=== PATIENT | female | born 1965 | race Caucasian/White ===

== ENCOUNTER 2017-07-04 20:51 | Inpatient (IN) | payer BC ==
[~2017-07-04] VITALS: Ht 167.6 cm; Wt 92.3 kg
[2017-07-04 21:55] LABS: BASOPHIL % 0.4 % (0-2); PLATELET COUNT 286 x10^3mcL (130-400); RED CELL DISTRIBUTION WIDTH 13.1 % (11.5-14.5)
[2017-07-04 22:04] LABS: CALCIUM 9.1 mg/dL (8.5-10.1); CARBON DIOXIDE 26.9 mmol/L (21-32); CHLORIDE SERUM 104 mmol/L (98-107); CREATININE SERUM 0.8 mg/dL (0.6-1.0); GFR1 > 60 mL/min; GLUCOSE SERUM 96 mg/dL (74-106); SODIUM SERUM 141 mmol/L (136-145)
[2017-07-04 22:08] LABS: ALBUMIN 3.6 g/dL (3.4-5.0); ALKALINE PHOSPHATASE 80 U/L (46-116); ALT/SGPT 24 U/L (14-59); AST/SGOT 20 U/L (15-37); BILIRUBIN TOTAL 0.33 mg/dL (0.20-1.00); LIPASE 90 IU/L (73-393); TOTAL PROTEIN, SERUM 7.3 g/dL (6.4-8.2)
[2017-07-04] MEDS ORDERED: CEPHALEXIN500 M1 PO (22:48)
[2017-07-04] MEDS ORDERED: GOOD SENSE OMEP20 MG PO (22:49)
[2017-07-05 00:13] VITALS: BP 121/63
[2017-07-05 00:33] LABS: T3 TOTAL 1.46 ng/mL
[2017-07-05 00:44] LABS: MAGNESIUM 2.3 mg/dL (1.8-2.4); PHOSPHOROUS 4.2 mg/dL (2.5-4.9)
[2017-07-05 00:49] LABS: FREE T4 1.36 ng/dL (0.76-1.46); T4(THYROXINE) 11.5 ug/dL (4.7-13.3)
[2017-07-05 05:21] VITALS: BP 111/70
[2017-07-05 09:36] VITALS: BP 110/66
[2017-07-05 10:39] LABS: microscopic required? NO
[2017-07-05 10:57] LABS: UA SPECIFIC GRAVITY 1.025 (1.005-1.035); urine erythrocyte NEGATIVE (NEGATIVE)
[2017-07-05 11:36] LABS: AMPHETAMINE QUAL UR NONE DETECTED (NEG <=1000)
[2017-07-05 14:13] VITALS: BP 121/53
[2017-07-05 16:54] VITALS: BP 113/68
[2017-07-05 21:28] VITALS: BP 110/54
[2017-07-06 06:04] VITALS: BP 109/63
[2017-07-06 06:15] LABS: BASOPHIL % 0.4 % (0-2); PLATELET COUNT 265 x10^3mcL (130-400); RED CELL DISTRIBUTION WIDTH 13.1 % (11.5-14.5)
[2017-07-06 06:35] LABS: CALCIUM 8.4 mg/dL (8.5-10.1); CARBON DIOXIDE 26.4 mmol/L (21-32); CHLORIDE SERUM 108 mmol/L (98-107); CREATININE SERUM 0.8 mg/dL (0.6-1.0); GFR1 > 60 mL/min; GLUCOSE SERUM 89 mg/dL (74-106); MAGNESIUM 2.2 mg/dL (1.8-2.4); PHOSPHOROUS 4.1 mg/dL (2.5-4.9); SODIUM SERUM 143 mmol/L (136-145)
[2017-07-06 09:58] VITALS: BP 108/70
[2017-07-06 12:02] VITALS: BP 108/70
== END 2017-07-06 13:11 | disposition home or self-care (01) | DRG 392 ==
LOC: ED 20:51 → DU 23:28
PROVIDERS: Emergency Medicine; Family Medicine
DX: K29.70 Gastritis, unspecified, without bleeding (principal); K56.7 Ileus, unspecified; Z90.710 Acquired absence of both cervix and uterus; Z98.51 Tubal ligation status; K21.9 Gastro-esophageal reflux disease without esophagitis; E78.5 Hyperlipidemia, unspecified; E66.3 Overweight; Z68.32 Body mass index [BMI] 32.0-32.9, adult
CPT/HCPCS: 83880; 84439; J0500; J1885; J2270; J2405; J2543; J7030; Q0092; Q9967

== ENCOUNTER 2019-12-30 20:22 | Emergency (ER) | payer BC ==
[~2019-12-30] VITALS: Ht 167.6 cm; Wt 82.6 kg
[~2019-12-30 20:22] MED LIST: CEPHALEXIN500 M1 PO; GOOD SENSE OMEP20 MG PO
[2019-12-30 20:37] VITALS: Ht 167.6 cm; Wt 82.6 kg
[2019-12-30 23:14] VITALS: BP 124/71
== END 2019-12-30 23:14 | disposition home or self-care (01) ==
LOC: ED 20:22
DX: S06.0X9A Concussion with loss of consciousness of unspecified duration, initial encounter (principal); W22.8XXA Striking against or struck by other objects, initial encounter; Y93.89 Activity, other specified; Y92.89 Other specified places as the place of occurrence of the external cause; Y99.8 Other external cause status
CPT/HCPCS: Q0092